=== PATIENT | female | born 1965 | race Two or more races ===

== ENCOUNTER 2017-04-02 20:01 | Emergency (ER) | payer MEDICAID, OTHER ==
[~2017-04-02] VITALS: Ht 154.9 cm; Wt 61.2 kg
[2017-04-02 21:43] LABS: Basophils # (auto) 0.1 uL; Basophils % (auto) 0.7 % (0.0-2.0); Eosinophils # (auto) 0.1 uL; Eosinophils % (auto) 1.3 % (0.0-7.0); Hematocrit 39.9 % (36.0-46.0); Hemoglobin 13.4 g/dL (12.2-16.2); Lymphocytes # (auto) 2.3 uL; Lymphocytes % (auto) 22.5 % (10.0-50.0); Mean Corpuscular Hemoglobin 28.1 pg (28.0-32.0); Mean Corpuscular Hgb Conc. 33.5 g/dL (32.0-36.0); Mean Corpuscular Volume 83.9 fL (80.0-100.0); Mean Platelet Volume 7.1 fL (6.9-10.8); Monocytes # (auto) 0.6 uL; Monocytes % (auto) 5.7 % (0.0-12.0); Neutrophils # (auto) 7.1 uL; Neutrophils % (auto) 69.8 % (37.0-80.0); Platelet Count (auto) 286 10^3/uL (140-450); Red Cell Distribution Width 14.8 % (11.8-14.3); White Blood Cell 10.2 10^3/uL (4.4-10.8)
[2017-04-02 22:12] LABS: Albumin 3.5 g/dL (3.4-5.0); Alkaline Phosphatase 82 U/L (45-117); Anion Gap 7 (5-15); Aspartate Aminotransferase 15 U/L (15-37); BUN/Creatinine Ratio 26.8; Bilirubin, Total 0.2 mg/dL (0.2-1.0); Blood Urea Nitrogen 19 mg/dL (7-18); Calcium 8.7 mg/dL (8.5-10.1); Carbon Dioxide 28 mmol/L (21-32); Chloride 103 mmol/L (98-107); GFR African American 113 mL/min; GFR Non-African American 93 mL/min; Glucose 101 mg/dL (74-106); Magnesium 2.5 mg/dL (1.6-2.6); Potassium 4.6 mmol/L (3.5-5.1); Sodium 138 mmol/L (136-145); Total Protein 7.6 g/dL (6.4-8.2)
[2017-04-03] MEDS ORDERED: HYDROcodone-ACET 10/325MG TAB PO ONE (02:15)
[2017-04-03 04:30] VITALS: BP 111/80
== END 2017-04-03 05:18 | disposition home or self-care (01) ==
LOC: ER 20:02
DX: G43.009 Migraine without aura, not intractable, without status migrainosus (principal); F41.9 Anxiety disorder, unspecified; G89.29 Other chronic pain; M54.9 Dorsalgia, unspecified
CPT/HCPCS: 36415; 70450; 71010; 80053; 83735; 84484; 84702; 85025; 93005

== ENCOUNTER 2022-11-16 11:26 | Emergency (ER) | payer OTHER ==
[~2022-11-16] VITALS: Ht 157.5 cm; Wt 64.0 kg
[2022-11-16] MEDS ORDERED: HYDROcodone-ACET 5/325MG TAB PO ONE (14:30)
[2022-11-16] MEDS ORDERED: KETOROLAC TROMETH 60MG/2ML VIAL IM ONE (14:30)
[2022-11-16] MEDS ORDERED: TETANUS-DIPTH-ACEL PERTUSSIS 0.5ML SYR Tdap IM ONE ×2 (15:30→15:36)
[2022-11-16] MEDS ORDERED: ACET500T58 PO ×3 (15:35→20:05)
[2022-11-16] MEDS ORDERED: IBUP-1455 PO (15:35)
[2022-11-16] MEDS ORDERED: AUG875T PO ×3 (15:35→20:05)
[2022-11-16] MEDS ORDERED: MAX35OO TOP ×3 (15:35→20:05)
[2022-11-16 16:01] VITALS: BP 133/91
== END 2022-11-16 16:05 | disposition home or self-care (01) ==
LOC: ER 11:26
DX: S81.852A Open bite, left lower leg, initial encounter (principal); S81.832A Puncture wound without foreign body, left lower leg, initial encounter; W54.0XXA Bitten by dog, initial encounter; Y93.89 Activity, other specified; Y92.89 Other specified places as the place of occurrence of the external cause; Y99.8 Other external cause status
CPT/HCPCS: 73590; 90471; 90715; 96372; 99284; J1885